=== PATIENT | female | born 1975 | race Caucasian/White ===

== ENCOUNTER 2020-03-06 03:38 | Emergency (ER) | payer OTHER ==
[~2020-03-06] VITALS: Ht 160 cm; Wt 127.0 kg
[2020-03-06 03:49] VITALS: BP 121/57
--- NOTE | 2020-03-06 03:58 | NUR ---
PT AMBULATED TO BED #11
--- NOTE | 2020-03-06 04:00 | NUR ---
44 Y/O FEMALE PRESENTED TO ED C/O BODY ACHES/JOINT PAIN X 9 YEARS. PT STATES SHE HAS OSTEOARTHRITIS AND HAS HAD THIS STIFF / ACHING PAIN FOR 9 YEARS BUT IT HAS NOW BECOME UNBEARABLE AND IS NOW 10/10. PT STATES SHE HAS A LOT OF STRESS IN HER LIFE RIGHT NOW. SHE WAS HOMELESS AND IS CURRENTLY LIVING IN A HOTEL. PT STATES SHE'S GAINED A LOT OF WEIGHT IN THE LAST COUPLE MONTHS BECAUSE OF BEING HOMELESS. PT DENIES N/V/D/FEVER, CHILLS. PT DENIES SOB. PT DENIES DRUG OR ALCOHOL USE. PT RESTING IN BED AT LOWEST POSITION, HOB ELEVATED , SIDE RAIL X 1. PMH: OSTEOARTHRITIS, BIPOLAR, DEPRESSION, FIBROMYALGIA, CARPAL TUNNEL LEFT HAND, SURGERY FOR CARPAL TUNNEL IN RIGHT HAND RX: [place] AX: IGOR
--- NOTE | 2020-03-06 04:18 | NUR ---
DR. SHOEMAKER AT BEDSIDE FOR MSE.
[2020-03-06] MEDS ORDERED: KETOROLAC 60 MG/2 ML VIAL IM ONE (04:25)
[2020-03-06 04:41] VITALS: BP 121/57
== END 2020-03-06 04:41 | disposition home or self-care (01) ==
LOC: MED 03:38
DX: M79.10 Myalgia, unspecified site (principal); F32.9 Major depressive disorder, single episode, unspecified; F31.9 Bipolar disorder, unspecified; M19.90 Unspecified osteoarthritis, unspecified site; Z88.1 Allergy status to other antibiotic agents; Z86.59 Personal history of other mental and behavioral disorders
CPT/HCPCS: 96372; 99283; J1885

== ENCOUNTER 2020-03-08 04:14 | Emergency (ER) | payer OTHER ==
[~2020-03-08] VITALS: Ht 160 cm; Wt 93.4 kg
--- NOTE | 2020-03-08 04:15 | NUR ---
PT AMBULATED TO BED 06 WITH STEADY GAIT
[2020-03-08 04:34] VITALS: BP 114/48
--- NOTE | 2020-03-08 04:38 | NUR ---
44F PRESENTS TO ED WITH C/O CHEST PAIN THAT STARTED X 20 MINS. STATED SHARP, HEAVY 10/10 PRESSURE THAT RADIATED TO LT SHOULDER. PT STATES AT THE MOMENT, NO CHEST PAIN. RR EVEN AND UNLABORED. DENIES SOB/COUGH, DENIES N/V/D. PT PLACED ON CARDIAC MONITORING. POSITION IN BED FOR COMFORT WITH HOB ELEVATED. BED LOWEST AND LOCKED, RAILS X 2 PMHX: HYSTERECTOMY, RT CARPAL TUNNEL, ALLX: KEFLEX. NEGATIVE FOR COVID SCREENING. PT WEARING MASK
[2020-03-08 04:40] VITALS: BP 114/48
== END 2020-03-08 05:20 | disposition home or self-care (01) ==
LOC: MED 04:14
DX: R07.9 Chest pain, unspecified (principal); Z88.1 Allergy status to other antibiotic agents
CPT/HCPCS: 93005; 99283